=== PATIENT | female | born 1960 | race Caucasian/White ===

== ENCOUNTER 2017-04-06 17:35 | Emergency (ER) | payer MEDICARE, OTHER ==
[2017-04-06] MEDS ORDERED: HYDROCODONE/ACETAMINOPHEN 5-325 MG TABLET PO ONE (17:49)
[2017-04-06 17:53] VITALS: BP 146/79
--- NOTE | 2017-04-06 18:05 | ER Document Report ---
ED Medical Screen (RME) - General Chief Complaint: Knee Injury Stated Complaint: RIGHT KNEE INJURY Time Seen by Provider: 04/06/17 17:48 Mode of Arrival: Ambulatory Information source: Patient Notes: I was asked to evaluate the patient due to her knee pain, small abrasion noted otherwise she has extended in no distress x-ray and pain medication ordered TRAVEL OUTSIDE OF THE [place] IN LAST 30 DAYS: No - Related Data Allergies/Adverse Reactions: eucalyptus Allergy (Verified 04/06/17 17:50) ivp dye Allergy (Uncoded 04/06/17 17:50) peanut butter Allergy (Uncoded 04/06/17 17:50) Past Medical History Renal/ Medical History: Denies: Hx Peritoneal Dialysis Physical Exam - Vital signs Vitals: Temp Pulse Resp BP Pulse Ox 97.8 F 88 20 146/79 H 97 04/06/17 17:50 04/06/17 17:50 04/06/17 17:50 04/06/17 17:50 04/06/17 17:50 Course - Vital Signs Vital signs: Temp Pulse Resp BP Pulse Ox 97.8 F 88 20 146/79 H 97 04/06/17 17:50 04/06/17 17:50 04/06/17 17:50 04/06/17 17:50 04/06/17 17:50
--- NOTE | 2017-04-06 18:05 | ER Document Report ---
HPI - HPI Pain Level: 5 Notes: patient is a 56-year-old female who presents to the ED complaining of right knee pain status post injury prior to arrival. Patient states that she fell on her anterior right knee when she got out of her van. Patient states that she has pain anteriorly, and cannot flex her knee because of the pain. Patient states that sitting extended with ice on it does help. Patient has not had anything for her symptoms. The pain does not radiate. Pain is described as sharp. Patient states that she cannot bear weight on it because the pain. Denies any headache, fever, head injury, neck pain, URI, sore throat, chest pain , palpitations, syncope, cough, shortness of breath, wheeze, dyspnea, abdominal pain, nausea/vomiting/diarrhea, urinary retention, dysuria, hematuria, back pain , loss of control of bowel or bladder, numbness/tingling, saddle anesthesia, muscle paralysis/weakness, or rash. - ROS Notes: REVIEW OF SYSTEMS: CONSTITUTIONAL : Denies fever, chills, or sweats. Denies recent illness. EENT: Denies eye, ear, throat, or mouth pain or symptoms. Denies nasal or sinus congestion or discharge. Denies throat, tongue, or mouth swelling or difficulty swallowing. CARDIOVASCULAR: Denies chest pain. Denies palpitations or racing or irregular heart beat. Denies ankle edema. RESPIRATORY: Denies cough, cold, or chest congestion. Denies shortness of breath, difficulty breathing, or wheezing. GASTROINTESTINAL: Denies abdominal pain or distention. Denies nausea, vomiting , or diarrhea. GENITOURINARY: Denies difficulty urinating, painful urination, burning, frequency, blood in urine, or discharge. MUSCULOSKELETAL: see hpi SKIN: Denies rash, lesions or sores. NEUROLOGICAL: Denies confusion or altered mental status. Denies passing out or loss of consciousness. Denies dizziness or lightheadedness. Denies headache. Denies weakness or paralysis or loss of use of either side. Denies problems with gait or speech. Denies sensory loss, numbness, or tingling. ALL OTHER SYSTEMS REVIEWED AND NEGATIVE. Dictation was performed using [employer] voice recognition software - DERM Skin Color: Normal Past Medical History - Social History Smoking Status: Never Smoker Family History: Reviewed & Not Pertinent Patient has suicidal ideation: No Patient has homicidal ideation: No Renal/ Medical History: Denies: Hx Peritoneal Dialysis Vertical Provider Document - CONSTITUTIONAL Agree With Documented VS: Yes Notes: PHYSICAL EXAMINATION: GENERAL: Well-appearing, well-nourished and in no acute distress. LUNGS: Breath sounds clear to auscultation bilaterally and equal. No wheezes rales or rhonchi. HEART: Regular rate and rhythm without murmurs, rubs, gallops. Musculoskeletal:Rt knee: small abrasion anteriorly. + mild swelling w/o warmth. + mild ecchymosis noted to anterior knee. No obvious ecchymosis or deformity otherwise. + tenderness to palp of the anterior knee and patella. LROM to flexion (approx 15 degrees b4 pt resistance). Pt would not allow for complete assessment of knee due to pain, and I did not want to force it. Extremities: No cyanosis, clubbing, or edema b/l. Peripheral pulses 2+. Capillary refill less than 3 seconds. NEUROLOGICAL: Normal sensory, motor exams PSYCH: Normal mood, normal affect. SKIN: Warm, Dry, normal turgor, no rashes or lesions noted. - INFECTION CONTROL TRAVEL OUTSIDE OF THE [place] IN LAST 30 DAYS: No - RESPIRATORY O2 Sat by Pulse Oximetry: 97 Course - Re-evaluation Re-evalutation: 04/06/17 19:10 Patient is an afebrile, well-hydrated, 56-year-old female who presents the ED with a mildly displaced transverse patellar fracture. Vitals are stable. PE is otherwise unremarkable for any neurovascular compromise. See XR result. Reviewed with Ortho FREDERICK Self who recommended knee immobilizer, crutches, and non-weight bearing. I did re-emphasize displaced and read XR impression. Recommendations stayed the same. Low suspicion for any other systemic emergent condition at this time. Recommend conservative measures for symptoms. Recheck with your PCM next week. Call orthopedics to set up an appointment for further evaluation and management for early next week. Return to the ED with any worsening/concerning symptoms otherwise as reviewed in discharge. Patient is in agreement. Patient has oxycodone at home and took two 10mg tabs prior to arrival right after the incident. I will not be sending her home with more narcotics at this time as she has oxycodone already. Reviewed with Dr. Vu: our conventional knee immobilizer will suffice. - Vital Signs Vital signs: Temp Pulse Resp BP Pulse Ox 97.8 F 88 20 146/79 H 97 04/06/17 17:50 04/06/17 17:50 04/06/17 17:50 04/06/17 17:50 04/06/17 17:50 Procedures - Immobilization Right Knee Time completed: 19:10 Pre-Proc Neuro Vasc Exam: Normal Immobilizer type: Knee immobilizer Performed by: PCT Post-Proc Neuro Vasc Exam: Normal, Unchanged from pre-exam Discharge - Discharge Clinical Impression: Right patella fracture Qualifiers: Encounter type: initial encounter Fracture type: closed Fracture morphology: transverse Fracture alignment: displaced Qualified Code(s): S82.031A - Displaced transverse fracture of right patella, initial encounter for closed fracture Condition: Stable Disposition: HOME, SELF-CARE Instructions: Use of Crutches ([facility]), Ice & Elevation ([facility]), Knee Immobilizing Splint ([facility]) Additional Instructions: Rest, Ice, Compression, Elevation Use splint/crutches as directed and remain non-weight bearing until eval with Ortho* Tylenol/ibuprofen as needed Light stretches daily Strength exercises as able Moist heat and massage may help F/u with your PCP in 1 week for a recheck Call Orthopedics on Saturday to schedule a follow-up for further evaluation and management I spoke with Ms. Clair MTZ at the Orthopedic clinic. Return to the ED with any worsening symptoms and/or development of fever, headache, chest pain, palpitations, syncope, shortness of breath, trouble breathing, abdominal pain, n/v/d, muscle weakness/paralysis, numbness/tingling, swelling, redness, or other worsening symptoms that are concerning to you. Referrals: [facility] ([facility]) [Provider Group] - Follow up in 3-5 days
--- NOTE | 2017-04-06 18:51 | RADIOLOGY REPORT (SQ) ---
EXAM DESCRIPTION: KNEE RIGHT 4 VIEWS COMPLETED DATE/TIME: 04/06/2017 6:38 pm REASON FOR STUDY: injury COMPARISON: None. NUMBER OF VIEWS: Four views. TECHNIQUE: AP, lateral, and both oblique radiographic images acquired of the right knee. LIMITATIONS: None. FINDINGS: MINERALIZATION: Normal. BONES: A mildly displaced transverse fracture is seen of the patella. JOINT: Note is made of a layering joint effusion. SOFT TISSUES: Prepatellar soft tissue edema is present. OTHER: No other significant finding. IMPRESSION: Transverse fracture of the patella with lipohemarthrosis and prepatellar edema. TECHNICAL DOCUMENTATION: JOB ID: [id number] [employer]- All Rights Reserved
== END 2017-04-06 19:30 | disposition home or self-care (01) ==
LOC: ER 17:35
DX: S82.031A Displaced transverse fracture of right patella, initial encounter for closed fracture (principal); W19.XXXA Unspecified fall, initial encounter; Y93.89 Activity, other specified
CPT/HCPCS: 99283; 73564; L1830